=== PATIENT | female | born 1960 | race Caucasian/White ===

== ENCOUNTER 2021-07-12 20:19 | Emergency (ER) | payer BC ==
[2021-07-12] MEDS ORDERED: Ondansetron 4 MG/2 ML SDV IVPUSH ONE (20:38)
[2021-07-12] MEDS ORDERED: Sodium Chloride 0.9% 10 ML Syringe FLUSH PRN (20:38)
[2021-07-12] MEDS ORDERED: EPINEPHrine 1 MG/ML SDV IM PRN (20:39)
[2021-07-12] MEDS ORDERED: diphenhydrAMINE 50 MG/ML SDV IVPUSH PRN (20:39)
[2021-07-12] MEDS ORDERED: methylPREDNISolone Sodium Succinate 125 MG/2 ML SDV IVPUSH PRN (20:39)
[2021-07-12] MEDS ORDERED: Famotidine 20 MG/2 ML SDV IVPUSH PRN (20:39)
[2021-07-12] MEDS ORDERED: Sodium Chloride 0.9% 10 ML Syringe FLUSH SCH (20:45)
[2021-07-12] MEDS ORDERED: Sodium Chloride 0.9% 1,000 ML IV SCH (20:45)
[2021-07-12] MEDS ORDERED: Sodium Chloride 0.9% 1,000 ML ONE (21:47)
--- NOTE | 2021-07-12 21:47 | EDM.PDOC ---
ED HPI GENERAL MEDICAL PROBLEM - General Chief Complaint: Respiratory Problem Stated Complaint: [facility] Time Seen by Provider: 07/12/21 20:25 Source of Information: Reports: Patient, EMS History Limitations: Reports: No Limitations - History of Present Illness INITIAL COMMENTS - FREE TEXT/NARRATIVE: The patient presents by [facility] for shortness of breath, cough, fever, chills, generalized weakness and nausea. She started having symptoms on Tuesday. On Tuesday she was diagnosed with COVID 19. She has no chest pain. She has no diarrhea. She has no history of asthma or COPD. She has high cholesterol. She has Sjorgen's. She has no heart disease. She does not smoke. Onset: Gradual Duration: Week(s): (1) Severity: Moderate Improves with: Reports: None Worsens with: Reports: None Associated Symptoms: Reports: Cough, Fever/Chills, Nausea/Vomiting, Shortness of Breath. 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: Musculoskeletal History: Reports: Osteoporosis, Other (See Below) Other Musculoskeletal History: right broken arm, right broken ankle Psychiatric History: Reports: Anxiety, Depression - Infectious Disease History Infectious Disease History: Reports: Novel Coronavirus Social & Family History - Tobacco Use Tobacco Use Status *Q: Never Tobacco User Second Hand Smoke Exposure: No - Caffeine Use Caffeine Use: Reports: Coffee, Energy Drinks, Soda - Recreational Drug Use Recreational Drug Use: No ED ROS GENERAL - Review of Systems Review Of Systems: See Below Constitutional: Reports: Fever, Chills, Malaise, Weakness, Fatigue HEENT: Reports: No Symptoms Respiratory: Reports: Shortness of Breath, Cough Cardiovascular: Reports: No Symptoms Endocrine: Reports: Fatigue GI/Abdominal: Reports: Nausea. Denies: Abdominal Pain, Diarrhea, Vomiting : Reports: No Symptoms Musculoskeletal: Reports: No Symptoms ED EXAM, GENERAL - Physical Exam Exam: See Below Exam Limited By: No Limitations General Appearance: Alert, No Apparent Distress Ears: Normal External Exam Nose: Normal Inspection Head: Atraumatic, Normocephalic Neck: Normal Inspection Respiratory/Chest: No Respiratory Distress, Lungs Clear, Normal Breath Sounds Cardiovascular: Regular Rate, Rhythm, No Edema, No Murmur GI/Abdominal: Soft, Non-Tender, No Organomegaly, No Mass Back Exam: Normal Inspection Extremities: Normal Inspection Course - Vital Signs Last Recorded V/S: Last Vital Signs Temp 96.9 F 07/12/21 20:24 Pulse 74 07/12/21 20:24 Resp 20 07/12/21 20:24 BP 122/70 07/12/21 20:24 Pulse Ox 99 07/12/21 20:24 - Orders/Labs/Meds Orders: Active Orders 24 hr Category Date Time Status Cardiac Monitoring [RC] . DIRECTED Care 07/12/21 20:38 Active Peripheral IV Care [RC] . DIRECTED Care 07/12/21 20:38 Active Vital Signs [RC] Q15M Care 07/12/21 20:39 Active Chest 1V Frontal [CR] Stat Exams 07/12/21 20:39 Taken EPINEPHrine [Adrenalin] Med 07/12/21 20:39 Active 0.3 mg IM ASDIRECTED PRN Famotidine [Pepcid] Med 07/12/21 20:39 Active 20 mg IVPUSH ASDIRECTED PRN Sodium Chloride 0.9% [Normal Saline] 1,000 ml Med 07/12/21 20:45 Active IV .BOLUS Sodium Chloride 0.9% [Saline Flush] Med 07/12/21 20:38 Active 10 ml FLUSH ASDIRECTED PRN Sodium Chloride 0.9% [Saline Flush] Med 07/12/21 20:45 Active 30 ml FLUSH ASDIRECTED diphenhydrAMINE [Benadryl] Med 07/12/21 20:39 Active 50 mg IVPUSH ASDIRECTED PRN methylPREDNISolone Sod Succ [Solu-MEDROL] Med 07/12/21 20:39 Active 125 mg IVPUSH ASDIRECTED PRN ED Antiemetic Medication Reflex [OM.PC] Stat Oth 10/24/21 20:38 Ordered Peripheral IV Insertion Adult [OM.PC] Stat Oth 07/12/21 20:38 Ordered Medication Orders Diphenhydramine HCl (Diphenhydramine 50 Mg/Ml Sdv) 50 mg IVPUSH ASDIRECTED PRN PRN Reason: hypersensitivity reaction Epinephrine HCl (Epinephrine 1 Mg/Ml Sdv) 0.3 mg IM ASDIRECTED PRN PRN Reason: hypersensitivity reaction Famotidine (Famotidine 20 Mg/2 Ml Sdv) 20 mg IVPUSH ASDIRECTED PRN PRN Reason: hypersensitivity reaction Sodium Chloride (Normal Saline) 1,000 mls @ 1,000 mls/hr IV .BOLUS LINDA Last Admin: 07/12/21 21:52 Dose: 1,000 mls/hr Documented by: HERMMIC Methylprednisolone Sodium Succinate (Methylprednisolone Sodium Succinate 125 Mg/2 Ml Sdv) 125 mg IVPUSH ASDIRECTED PRN PRN Reason: hypersensitivity reaction Sodium Chloride (Sodium Chloride 0.9% 10 Ml Syringe) 30 ml FLUSH ASDIRECTED LINDA Sodium Chloride (Sodium Chloride 0.9% 10 Ml Syringe) 10 ml FLUSH ASDIRECTED PRN PRN Reason: Keep Vein Open Labs: Laboratory Tests 07/12/21 07/12/21 07/12/21 Range/Units 20:30 20:30 20:30 WBC 2.54 L (3.98-10.04) K/mm3 RBC 4.12 (3.98-5.22) M/mm3 Hgb 12.9 (11.2-15.7) gm/dl Hct 38.1 (34.1-44.9) % MCV 92.5 (79.4-94.8) fl MCH 31.3 (25.6-32.2) pg MCHC 33.9 (32.2-35.5) g/dl RDW Std Deviation 39.9 (36.4-46.3) fL Plt Count 225 (182-369) K/mm3 MPV 9.5 (9.4-12.3) fl Neut % (Auto) 59.9 (34.0-71.1) % Lymph % (Auto) 23.6 (19.3-51.7) % Long % (Auto) 15.7 H (4.7-12.5) % Eos % (Auto) 0.4 L (0.7-5.8) Baso % (Auto) 0.4 (0.1-1.2) % Neut # (Auto) 1.52 L (1.56-6.13) K/mm3 Lymph # (Auto) 0.60 L (1.18-3.74) K/mm3 Long # (Auto) 0.40 H (0.24-0.36) K/mm3 Eos # (Auto) 0.01 L (0.04-0.36) K/mm3 Baso # (Auto) 0.01 (0.01-0.08) K/mm3 PT 10.3 (9.7-12.0) SECONDS INR 0.93 APTT 25.7 (21.7-31.4) SECONDS D-Dimer, Quantitative < 0.19 L (0.19-0.50) mg/L Sodium 129 L (136-145) mEq/L Potassium 4.0 (3.5-5.1) mEq/L Chloride 97 L (98-107) mEq/L Carbon Dioxide 21 (21-32) mEq/L Anion Gap 15.0 (5-15) BUN 18 (7-18) mg/dL Creatinine 1.1 H (0.55-1.02) mg/dL Est Cr Clr Drug Dosing 48.33 mL/min Estimated GFR (MDRD) 50 (>60) mL/min BUN/Creatinine Ratio 16.4 (14-18) Glucose 109 H (70-99) mg/dL Lactic Acid (0.4-2.0) mmol/L Calcium 7.7 L (8.5-10.1) mg/dL Total Bilirubin 0.4 (0.2-1.0) mg/dL AST 19 (15-37) U/L ALT 25 (14-59) U/L Alkaline Phosphatase 48 (46-116) U/L C-Reactive Protein 1.6 H* (<1.0) mg/dL Total Protein 6.9 (6.4-8.2) g/dl Albumin 3.5 (3.4-5.0) g/dl Globulin 3.4 gm/dL Albumin/Globulin Ratio 1.0 (1-2) 10/24/21 Range/Units 20:30 WBC (3.98-10.04) K/mm3 RBC (3.98-5.22) M/mm3 Hgb (11.2-15.7) gm/dl Hct (34.1-44.9) % MCV (79.4-94.8) fl MCH (25.6-32.2) pg MCHC (32.2-35.5) g/dl RDW Std Deviation (36.4-46.3) fL Plt Count (182-369) K/mm3 MPV (9.4-12.3) fl Neut % (Auto) (34.0-71.1) % Lymph % (Auto) (19.3-51.7) % Long % (Auto) (4.7-12.5) % Eos % (Auto) (0.7-5.8) Baso % (Auto) (0.1-1.2) % Neut # (Auto) (1.56-6.13) K/mm3 Lymph # (Auto) (1.18-3.74) K/mm3 Long # (Auto) (0.24-0.36) K/mm3 Eos # (Auto) (0.04-0.36) K/mm3 Baso # (Auto) (0.01-0.08) K/mm3 PT (9.7-12.0) SECONDS INR APTT (21.7-31.4) SECONDS D-Dimer, Quantitative (0.19-0.50) mg/L Sodium (136-145) mEq/L Potassium (3.5-5.1) mEq/L Chloride (98-107) mEq/L Carbon Dioxide (21-32) mEq/L Anion Gap (5-15) BUN (7-18) mg/dL Creatinine (0.55-1.02) mg/dL Est Cr Clr Drug Dosing mL/min Estimated GFR (MDRD) (>60) mL/min BUN/Creatinine Ratio (14-18) Glucose (70-99) mg/dL Lactic Acid 0.9 (0.4-2.0) mmol/L Calcium (8.5-10.1) mg/dL Total Bilirubin (0.2-1.0) mg/dL AST (15-37) U/L ALT (14-59) U/L Alkaline Phosphatase (46-116) U/L C-Reactive Protein (<1.0) mg/dL Total Protein (6.4-8.2) g/dl Albumin (3.4-5.0) g/dl Globulin gm/dL Albumin/Globulin Ratio (1-2) Meds: Medications Generic Name Dose Route Start Last Admin Trade Name Freq PRN Reason Stop Dose Admin Diphenhydramine HCl 50 mg 07/12/21 20:39 Diphenhydramine 50 Mg/Ml Sdv IVPUSH ASDIRECTED PRN hypersensitivity reaction Epinephrine HCl 0.3 mg 07/12/21 20:39 Epinephrine 1 Mg/Ml Sdv IM ASDIRECTED PRN hypersensitivity reaction Famotidine 20 mg 07/12/21 20:39 Famotidine 20 Mg/2 Ml Sdv IVPUSH ASDIRECTED PRN hypersensitivity reaction Sodium Chloride 1,000 mls @ 1,000 mls/hr 07/12/21 20:45 07/12/21 21:52 Normal Saline IV 1,000 mls/hr .BOLUS LINDA Administration Methylprednisolone Sodium Succinate 125 mg 07/12/21 20:39 Methylprednisolone Sodium Succinate 125 Mg/2 Ml Sdv IVPUSH ASDIRECTED PRN hypersensitivity reaction Sodium Chloride 30 ml 07/12/21 20:45 Sodium Chloride 0.9% 10 Ml Syringe FLUSH ASDIRECTED LINDA Sodium Chloride 10 ml 07/12/21 20:38 Sodium Chloride 0.9% 10 Ml Syringe FLUSH ASDIRECTED PRN Keep Vein Open Discontinued Medications Generic Name Dose Route Start Last Admin Trade Name Freq PRN Reason Stop Dose Admin CASIRIVIMAB/IMDEVIMAB 10 ml/ 110 mls @ 220 mls/hr 07/12/21 20:39 Sodium Chloride IV 07/12/21 21:08 ONETIME ONE Sodium Chloride Confirm 07/12/21 21:47 07/12/21 21:54 Normal Saline Administered 07/12/21 21:48 Not Given Dose 1,000 mls @ as directed .ROUTE .STK-MED ONE Ondansetron HCl 4 mg 07/12/21 20:38 07/12/21 21:52 Ondansetron 4 Mg/2 Ml Sdv IVPUSH 07/12/21 20:39 4 mg ONETIME ONE Administration - Re-Assessments/Exams Free Text/Narrative Re-Assessment/Exam: 07/13/21 00:28 I ordered an IV NS 1L bolus, zofran 4mg IV, labs, CXR and REGEN-COV. Her CXR shows COVID pneumonia. Her WBC was low at 2.54. Her D-dimer was negative. Her Na was low at 129. Her creatinine was 1.1. Her lactic acid was normal at 0.9. Her CRP was elevated at 1.6. She feels better after the fluid. We ran out of REGEN-COV. I will write an outpatient order and get her on dexamethasone and albuterol. Departure - Departure Time of Disposition: 00:35 Disposition: Home, Self-Care 01 Condition: Good Clinical Impression: COVID-19, Pneumonia due to COVID-19 virus - Discharge Information *PRESCRIPTION DRUG MONITORING PROGRAM REVIEWED*: Not Applicable *COPY OF PRESCRIPTION DRUG MONITORING REPORT IN PATIENT TING: Not Applicable Prescriptions: dexAMETHasone [Dexamethasone] 6 mg PO DAILY #10 tab Referrals: PCP,None [Primary Care Provider] - Forms: ED Department Discharge Additional Instructions: Drink plenty of fluids. Take the dexamethasone 1.5 pills daily until gone. Take tylenol or motrin as needed for fever or pain. Use the albuterol inhaler 2 puffs every 6 hours as needed for shortness of breath. Someone from the hospital will call you when to come in to get the monoclonal antibodies. Please return if you are worse. Sepsis Event Note (ED) - Focused Exam Vital Signs: Vital Signs Temp Pulse Resp BP Pulse Ox 07/12/21 20:24 96.9 F 74 20 122/70 99 - My Orders Last 24 Hours: My Active Orders 07/12/21 20:38 Cardiac Monitoring [RC] . DIRECTED Peripheral IV Care [RC] . DIRECTED Sodium Chloride 0.9% [Saline Flush] 10 ml FLUSH ASDIRECTED PRN ED Antiemetic Medication Reflex [OM.PC] Stat Peripheral IV Insertion Adult [OM.PC] Stat 07/12/21 20:39 Vital Signs [RC] Q15M Chest 1V Frontal [CR] Stat EPINEPHrine [Adrenalin] 0.3 mg IM ASDIRECTED PRN Famotidine [Pepcid] 20 mg IVPUSH ASDIRECTED PRN diphenhydrAMINE [Benadryl] 50 mg IVPUSH ASDIRECTED PRN methylPREDNISolone Sod Succ [Solu-MEDROL] 125 mg IVPUSH ASDIRECTED PRN 07/12/21 20:45 Sodium Chloride 0.9% [Normal Saline] 1,000 ml IV .BOLUS Sodium Chloride 0.9% [Saline Flush] 30 ml FLUSH ASDIRECTED - Assessment/Plan Last 24 Hours: My Active Orders 07/12/21 20:38 Cardiac Monitoring [RC] . DIRECTED Peripheral IV Care [RC] . DIRECTED Sodium Chloride 0.9% [Saline Flush] 10 ml FLUSH ASDIRECTED PRN ED Antiemetic Medication Reflex [OM.PC] Stat Peripheral IV Insertion Adult [OM.PC] Stat 07/12/21 20:39 Vital Signs [RC] Q15M Chest 1V Frontal [CR] Stat EPINEPHrine [Adrenalin] 0.3 mg IM ASDIRECTED PRN Famotidine [Pepcid] 20 mg IVPUSH ASDIRECTED PRN diphenhydrAMINE [Benadryl] 50 mg IVPUSH ASDIRECTED PRN methylPREDNISolone Sod Succ [Solu-MEDROL] 125 mg IVPUSH ASDIRECTED PRN 07/12/21 20:45 Sodium Chloride 0.9% [Normal Saline] 1,000 ml IV .BOLUS Sodium Chloride 0.9% [Saline Flush] 30 ml FLUSH ASDIRECTED
[2021-07-13] MEDS ORDERED: Dexamethasone 4 MG Tab PO ONE (00:30)
[2021-07-13] MEDS ORDERED: Albuterol 6.7 GM Inhaler INH ONE (00:31)
--- NOTE | 2021-07-13 07:41 | CR ---
Chest: Frontal view of the chest was obtained. Comparison: No prior chest imaging is available. Heart size and mediastinum are within normal limits. Increased density is seen within the right mid and lower lung. Lungs otherwise are clear. Bony structure shows nothing acute for the patient's age. Impression: 1. Increased density within the right mid and lower lung. Findings most likely represent areas of pneumonia. Please rule out COVID disease. Diagnostic code #3
== END 2021-07-13 01:26 | disposition home or self-care (01) ==
LOC: JD.ED 20:19
DX: U07.1 COVID-19 (principal); J12.82 Pneumonia due to coronavirus disease 2019; E78.00 Pure hypercholesterolemia, unspecified; Z79.899 Other long term (current) drug therapy; Z86.16 Personal history of COVID-19; Z88.0 Allergy status to penicillin; Z88.8 Allergy status to other drugs, medicaments and biological substances
CPT/HCPCS: 36415; 71045; 80053; 83605; 85025; 85379; 85610; 85730; 86140; 94640; 96374; 99285; A9270; J2405; J7030; J8540

== ENCOUNTER 2024-04-09 22:11 | Observation (INO) | payer BC ==
[2024-04-10] MEDS: fentaNYL 100 MCG/2 ML SDV IVPUSH ONE (01:58)
[2024-04-10 01:59] LABS: BASOPHILS PERCENT AUTO 0.2 % (0.0-1.0); EOSINOPHILS PERCENT AUTO 0.2 % (0.0-6.0); HEMATOCRIT 35.4 % (37.0-47.0); HEMOGLOBIN 11.8 gm/dl (12.0-16.0); IMMATURE GRAN ABSOLUTE AUTO 0.09 K/mm3 (0.00-0.05); IMMATURE GRAN PERCENT AUTO 0.7 % (0.0-0.4); LYMPHOCYTES ABSOLUTE AUTO 0.9 K/mm3 (1.0-4.8); LYMPHOCYTES PERCENT AUTO 6.5 % (24.0-44.0); MEAN CORPUSCULAR HEMOGLOBIN 30.7 pg (28.0-32.0); MEAN CORPUSCULAR HGB CONC 33.3 g/dl (32.0-36.0); MEAN CORPUSCULAR VOLUME 92.2 fl (83.0-99.0); MEAN PLATELET VOLUME 9.7 fl (9.4-12.3); MONOCYTES ABSOLUTE AUTO 0.7 K/mm3 (0.0-0.8); MONOCYTES PERCENT AUTO 5.3 % (0.0-8.0); NEUTROPHILS ABSOLUTE AUTO 11.5 K/mm3 (1.8-7.7); NEUTROPHILS PERCENT AUTO 87.1 % (41.0-71.0); PLATELET COUNT,PLT 228 K/mm3 (150-400); RED BLOOD CELL COUNT 3.84 M/mm3 (4.10-5.30); WHITE BLOOD CELL COUNT,WBC 13.16 K/mm3 (3.9-11.3)
[2024-04-10] MEDS: Sodium Chloride 0.9% 10 ML Syringe FLUSH PRN (01:59)
[2024-04-10 02:27] LABS: A/G RATIO 1.2 (1-2); ALBUMIN 3.7 g/dl (3.4-5.0); ANION GAP 14.7 (5-15); BILIRUBIN TOTAL 0.6 mg/dL (0.2-1.0); CALCIUM 8.7 mg/dL (8.5-10.1); CREATININE 1.2 mg/dL (0.55-1.02); EST CRCL DRUG DOSING (CG) 44.34 mL/min; MAGNESIUM 1.7 mg/dL (1.8-2.4); POTASSIUM,K 3.7 mEq/L (3.5-5.1); PROTEIN TOTAL,TP 6.7 g/dl (6.4-8.2)
[2024-04-10] MEDS: Ondansetron 4 MG/2 ML SDV IVPUSH PRN (08:25)
[2024-04-10] MEDS ORDERED: Docusate Sodium 100 MG Cap PO PRN (08:42)
[2024-04-10] MEDS ORDERED: HYDROmorphone 0.5 MG/0.5 ML Syringe IVPUSH PRN (08:42)
[2024-04-10] MEDS: Enoxaparin 40 MG/0.4 ML Syringe SUBCUT SCH (09:15)
[2024-04-10] MEDS: Sodium Chloride 0.9% 1,000 ML IV SCH (09:15)
[2024-04-10] MEDS: Magnesium Sulfate/Water 2 GM in Premix Bag 1 BAG IV ONE (10:21)
[2024-04-10] MEDS: Acetaminophen 325 MG Tab PO PRN (10:21)
[2024-04-10] MEDS: Sodium Chloride 0.9% 1,000 ML IV ONE (17:20)
[2024-04-10] MEDS: amLODIPine 10 MG Tab PO SCH (21:16)
[2024-04-10] MEDS: oxyCODONE 5 MG Tab PO PRN (21:19)
[2024-04-11 05:32] LABS: ANION GAP 12.9 (5-15); BASOPHILS PERCENT AUTO 0.3 % (0.0-1.0); BILIRUBIN TOTAL 0.9 mg/dL (0.2-1.0); BUN/CREATININE RATIO 7.8 (14-18); CALCIUM 8.4 mg/dL (8.5-10.1); CREATININE 0.9 mg/dL (0.55-1.02); EOSINOPHILS ABSOLUTE AUTO 0.1 K/mm3 (0.0-0.4); EOSINOPHILS PERCENT AUTO 1.6 % (0.0-6.0); EST CRCL DRUG DOSING (CG) 59.12 mL/min; HEMATOCRIT 33.2 % (37.0-47.0); IMMATURE GRAN ABSOLUTE AUTO 0.03 K/mm3 (0.00-0.05); IMMATURE GRAN PERCENT AUTO 0.5 % (0.0-0.4); LYMPHOCYTES ABSOLUTE AUTO 0.9 K/mm3 (1.0-4.8); LYMPHOCYTES PERCENT AUTO 14.6 % (24.0-44.0); MAGNESIUM 2.1 mg/dL (1.8-2.4); MEAN CORPUSCULAR HEMOGLOBIN 30.7 pg (28.0-32.0); MEAN CORPUSCULAR HGB CONC 33.1 g/dl (32.0-36.0); MEAN CORPUSCULAR VOLUME 92.7 fl (83.0-99.0); MEAN PLATELET VOLUME 10.7 fl (9.4-12.3); MONOCYTES ABSOLUTE AUTO 0.5 K/mm3 (0.0-0.8); MONOCYTES PERCENT AUTO 7.8 % (0.0-8.0); NEUTROPHILS ABSOLUTE AUTO 4.7 K/mm3 (1.8-7.7); NEUTROPHILS PERCENT AUTO 75.2 % (41.0-71.0); PLATELET COUNT,PLT 183 K/mm3 (150-400); POTASSIUM,K 3.9 mEq/L (3.5-5.1); RED BLOOD CELL COUNT 3.58 M/mm3 (4.10-5.30); WHITE BLOOD CELL COUNT,WBC 6.25 K/mm3 (3.9-11.3)
[2024-04-11] MEDS ORDERED: amLODIPine 5 MG Tab PO SCH (21:00)
== END 2024-04-11 13:43 | disposition home or self-care (01) ==
LOC: JD.ED 22:11 → JD.MS 04-10 06:17
PROVIDERS: ADMIT Family Medicine; ATTEND Family Medicine
DX: S32.592A Other specified fracture of left pubis, initial encounter for closed fracture (principal); R26.2 Difficulty in walking, not elsewhere classified; E87.1 Hypo-osmolality and hyponatremia; E87.8 Other disorders of electrolyte and fluid balance, not elsewhere classified; N18.31 Chronic kidney disease, stage 3a; M06.9 Rheumatoid arthritis, unspecified; E78.00 Pure hypercholesterolemia, unspecified; F32.A Depression, unspecified; E83.42 Hypomagnesemia; M81.0 Age-related osteoporosis without current pathological fracture; W01.0XXA Fall on same level from slipping, tripping and stumbling without subsequent striking against object, initial encounter; Z79.899 Other long term (current) drug therapy
CPT/HCPCS: 36415; 70450; 72192; 73502; 73552; 80053; 83735; 85025; 96361; 96365; 96366; 96372; 96375; 97110; 97116; 97161; 97530; 99285; A9270; G0378; J1650; J2405; J3010; J3475; J3490; J7030; 96374; 99283

== ENCOUNTER 2024-06-11 08:58 | Day surgery (SDC) | payer BC ==
[~2024-06-11 08:58] MED LIST: Dexamethasone 4 MG/ML 5 ML MDV ONE; Ketorolac 30 MG/ML SDV ONE; Lidocaine 2% 5 ML SDV ONE; Midazolam 1 MG/ML 2 ML SDV ONE; Ondansetron 4 MG/2 ML SDV ONE; Ropivacaine 0.5% 5 MG/ML 30 ML SDV ONE; Sodium Chloride 0.9% 10 ML Syringe FLUSH PRN; Sodium Chloride 0.9% 10 ML Syringe FLUSH SCH; dexmedeTOMIDine HCl 200 MCG/2 ML SDV ONE
[2024-06-11] MEDS: Pregabalin 25 MG Cap PO ONE ×2 (09:13→09:52)
[2024-06-11] MEDS ORDERED: Propofol 200 MG/20 ML SDV ONE ×3 (09:20)
[2024-06-11] MEDS: Lactated Ringers 1,000 ML IV SCH (09:22)
[2024-06-11] MEDS: Acetaminophen 325 MG Tab PO SCH (09:52)
[2024-06-11] MEDS: oxyCODONE ER 10 MG TAB.ER PO SCH (09:52)
[2024-06-11] MEDS: Pregabalin 75 MG Cap PO ONE (09:52)
[2024-06-11] MEDS ORDERED: ceFAZolin 2 GM Vial ONE (09:55)
[2024-06-11] MEDS ORDERED: Bupivacaine 0.25% 10 ML SDV ONE (09:56)
[2024-06-11] MEDS ORDERED: ePHEDrine 50 MG/ML SDV ONE (10:36)
[2024-06-11] MEDS ORDERED: Triamcinolone Acetonide 40 MG/ML 1 ML SDV ONE (11:05)
[2024-06-11] MEDS: Morphine 8 MG, EPINEPHrine 0.3 MG, Ketorolac 30 MG, Sodium Chloride 0.9% 7.9 ML PRN (11:24)
[2024-06-11] MEDS ORDERED: fentaNYL 100 MCG/2 ML SDV IVPUSH PRN (11:41)
[2024-06-11] MEDS ORDERED: Ondansetron 4 MG/2 ML SDV IVPUSH PRN (11:41)
[2024-06-11] MEDS ORDERED: HYDROmorphone 0.5 MG/0.5 ML Syringe IVPUSH PRN (11:41)
[2024-06-11] MEDS: Tranexamic Acid 1,000 MG/10 ML Vial ONE (11:47)
[2024-06-11] MEDS: Triamcinolone Acetonide 40 MG/ML 1 ML SDV ONE (11:47)
[2024-06-11] MEDS: Bupivacaine 0.25% 10 ML SDV ONE (11:47)
[2024-06-11] MEDS: Vancomycin 1 GM SDV ONE (11:47)
[2024-06-11] MEDS ORDERED: oxyCODONE 5 MG Tab PO PRN (13:03)
== END 2024-06-11 14:27 | disposition home or self-care (01) ==
LOC: JD.SDS 08:58
PROVIDERS: ATTEND Orthopaedic Surgery
DX: M17.0 Bilateral primary osteoarthritis of knee (principal); I12.9 Hypertensive chronic kidney disease with stage 1 through stage 4 chronic kidney disease, or unspecified chronic kidney disease; N18.32 Chronic kidney disease, stage 3b; F32.A Depression, unspecified; Z87.891 Personal history of nicotine dependence; Z79.899 Other long term (current) drug therapy; Z88.0 Allergy status to penicillin
CPT/HCPCS: 0055T; 20610; 27447; 64447; 73560; 97110; 97161; A9270; C1713; C1776; J0171; J0665; J0690; J1100; J1885; J2250; J2270; J2405; J2704; J2795; J3301; J3370; J7120; 01402; J3490

== ENCOUNTER 2024-08-06 06:45 | Day surgery (SDC) | payer BC ==
[2024-08-06] MEDS: Pregabalin 25 MG Cap PO ONE (06:44)
[2024-08-06] MEDS: Acetaminophen 325 MG Tab PO ONE (06:44)
[2024-08-06] MEDS: oxyCODONE ER 10 MG TAB.ER PO ONE (06:44)
[~2024-08-06 06:45] MED LIST changes: -Dexamethasone 4 MG/ML 5 ML MDV ONE; -Ketorolac 30 MG/ML SDV ONE; -Lidocaine 2% 5 ML SDV ONE; -Midazolam 1 MG/ML 2 ML SDV ONE; -Ondansetron 4 MG/2 ML SDV ONE; -Ropivacaine 0.5% 5 MG/ML 30 ML SDV ONE; -dexmedeTOMIDine HCl 200 MCG/2 ML SDV ONE
[2024-08-06] MEDS ORDERED: EPINEPHrine 1 MG/ML SDV ONE (07:03)
[2024-08-06] MEDS ORDERED: Propofol 200 MG/20 ML SDV ONE ×2 (07:03→07:49)
[2024-08-06] MEDS ORDERED: fentaNYL 100 MCG/2 ML SDV ONE (07:04)
[2024-08-06] MEDS ORDERED: ceFAZolin 2 GM Vial ONE (07:04)
[2024-08-06] MEDS ORDERED: Dexamethasone 4 MG/ML 5 ML MDV ONE (07:04)
[2024-08-06] MEDS ORDERED: Ketorolac 30 MG/ML SDV ONE (07:04)
[2024-08-06] MEDS ORDERED: dexmedeTOMIDine HCl 200 MCG/2 ML SDV ONE (07:04)
[2024-08-06] MEDS ORDERED: Ropivacaine 0.5% 5 MG/ML 30 ML SDV ONE (07:06)
[2024-08-06] MEDS: Lactated Ringers 1,000 ML IV SCH (07:25)
[2024-08-06] MEDS ORDERED: ePHEDrine 50 MG/ML SDV ONE (07:29)
[2024-08-06] MEDS ORDERED: Ondansetron 4 MG/2 ML SDV ONE ×2 (07:42→07:50)
[2024-08-06] MEDS: Vancomycin 1 GM SDV ONE (08:06)
[2024-08-06] MEDS: Morphine 8 MG, EPINEPHrine 0.3 MG, Cefuroxime 750 MG, Ketorolac 30 MG, Sodium Chloride ... PRN (08:06)
[2024-08-06] MEDS: Tranexamic Acid 1,000 MG/10 ML Vial ONE (08:06)
[2024-08-06] MEDS ORDERED: HYDROmorphone 0.5 MG/0.5 ML Syringe IVPUSH PRN (08:51)
[2024-08-06] MEDS ORDERED: fentaNYL 100 MCG/2 ML SDV IVPUSH PRN (08:51)
[2024-08-06] MEDS: oxyCODONE 5 MG Tab PO PRN (11:22)
== END 2024-08-06 12:20 | disposition home or self-care (01) ==
LOC: JD.SDS 06:45
PROVIDERS: ATTEND Orthopaedic Surgery
DX: M17.11 Unilateral primary osteoarthritis, right knee (principal); M81.0 Age-related osteoporosis without current pathological fracture; I12.9 Hypertensive chronic kidney disease with stage 1 through stage 4 chronic kidney disease, or unspecified chronic kidney disease; N18.32 Chronic kidney disease, stage 3b; Z87.891 Personal history of nicotine dependence; Z79.899 Other long term (current) drug therapy
CPT/HCPCS: 0055T; 27447; 64447; 73560; 97116; 97161; A9270; C1713; C1776; J0171; J0690; J0697; J1100; J1885; J2272; J2405; J2704; J2795; J3010; J7120; J3490

== ENCOUNTER 2025-05-09 07:49 | Day surgery (SDC) | payer MEDICARE ==
[2025-05-09] MEDS: Lactated Ringers 1,000 ML IV SCH (08:10)
[2025-05-09] MEDS ORDERED: fentaNYL 100 MCG/2 ML SDV ONE ×2 (09:55→10:40)
[2025-05-09] MEDS ORDERED: Midazolam 1 MG/ML 2 ML SDV ONE (09:55)
[2025-05-09] MEDS ORDERED: propofoL 500 MG/50 ML 50 ML ONE (09:55)
[2025-05-09] MEDS ORDERED: Propofol 200 MG/20 ML SDV ONE ×2 (10:39)
[2025-05-09] MEDS: EPINEPHrine 1 MG/ML SDV ONE (10:39)
[2025-05-09] MEDS ORDERED: fentaNYL 100 MCG/2 ML SDV IVPUSH PRN (11:12)
[2025-05-09] MEDS ORDERED: Ondansetron 4 MG/2 ML SDV IVPUSH PRN (11:12)
[2025-05-09] MEDS ORDERED: dexmedeTOMIDine HCl 200 MCG/2 ML SDV ONE (11:16)
[2025-05-09] MEDS ORDERED: Ropivacaine 0.5% 5 MG/ML 30 ML SDV ONE (11:16)
== END 2025-05-09 14:05 | disposition home or self-care (01) ==
LOC: JD.SDS 07:49
PROVIDERS: ATTEND Orthopaedic Surgery
DX: T84.84XA Pain due to internal orthopedic prosthetic devices, implants and grafts, initial encounter (principal); I12.9 Hypertensive chronic kidney disease with stage 1 through stage 4 chronic kidney disease, or unspecified chronic kidney disease; N18.32 Chronic kidney disease, stage 3b; E78.00 Pure hypercholesterolemia, unspecified; Z88.8 Allergy status to other drugs, medicaments and biological substances; Z88.0 Allergy status to penicillin; Z88.1 Allergy status to other antibiotic agents; Z96.651 Presence of right artificial knee joint; Z79.899 Other long term (current) drug therapy; Z87.891 Personal history of nicotine dependence
CPT/HCPCS: 29876; 64447; J0169; J0665; J0690; J2250; J2704; J2795; J3010; J7120; 01402; J1171